=== PATIENT | male | born 1950 | race Caucasian/White ===

== ENCOUNTER → 2022-06-27 | Outpatient (CLI) | payer MEDICARE, BC | LOC: M LAB 12:55 | PROVIDERS: ATTEND Nurse Practitioner Family | DX: I48.20 Chronic atrial fibrillation, unspecified (principal); I50.9 Heart failure, unspecified ==

== ENCOUNTER → 2022-07-12 | Outpatient (CLI) | payer MEDICARE, BC ==
[~2022-07-12] MED LIST: ISOVUE-370 76% 100ML VIAL As Ordered ONE
== END ==
LOC: M RAD 17:02
PROVIDERS: ATTEND Family Medicine
DX: R63.4 Abnormal weight loss (principal)
CPT/HCPCS: 71260; Q9967

== ENCOUNTER → 2022-08-14 | Outpatient (CLI) | payer MEDICARE, BC | LOC: M RAD 14:57 | PROVIDERS: ATTEND Family Medicine | DX: K42.9 Umbilical hernia without obstruction or gangrene (principal); R74.01 Elevation of levels of liver transaminase levels; N20.0 Calculus of kidney | CPT/HCPCS: 74177; Q9967 ==

== ENCOUNTER → 2022-08-15 | Outpatient (REF) | payer MEDICARE, BC ==
[2022-08-15 14:44] LABS: ALBUMIN 3.3 G/DL (3.2-5.2); BILIRUBIN,DIRECT 0.2 MG/DL (<0.4); BILIRUBIN,TOTAL 0.6 MG/DL (0.3-1.2); TOTAL PROTEIN 6.6 G/DL (5.7-8.2)
[2022-08-19 17:07] LABS: ASPERGILLUS FLAVUS ABY Negative (Neg:<1:1); ASPERGILLUS FUMIGATUS ABY Negative (Neg:<1:1); ASPERGILLUS NIGER ABY Negative (Neg:<1:1); BLASTOMYCES ABY Negative (Neg:<1:1)
== END ==
LOC: M LAB REF 13:09
PROVIDERS: ATTEND Internal Medicine Pulmonary Disease
DX: R91.8 Other nonspecific abnormal finding of lung field (principal)

== ENCOUNTER → 2023-01-28 | Outpatient (CLI) | payer MEDICARE, BC | LOC: M RAD 15:15 | PROVIDERS: ATTEND Internal Medicine Pulmonary Disease | DX: J98.4 Other disorders of lung (principal); N20.0 Calculus of kidney ==

== ENCOUNTER → 2025-02-25 | Outpatient (CLI) | payer MEDICARE | LOC: M PLAIMG 14:53 | PROVIDERS: ATTEND Nurse Practitioner Acute Care | DX: I71.40 Abdominal aortic aneurysm, without rupture, unspecified (principal) ==